=== PATIENT | female | born 1950 | race Caucasian/White ===

== ENCOUNTER 2022-10-09 14:49 | Emergency (ER) | payer MEDICARE ==
[2022-10-09] VITALS (8 sets, daily range): BP systolic 115–146; BP diastolic 50–71
[~2022-10-09] VITALS: Ht 162.6 cm; Wt 90.9 kg
[2022-10-09 15:38] LABS: HEMATOCRIT 32.2 % (37.0-47.0); HEMOGLOBIN 10.2 g/dl (12.0-16.0); IMMATURE GRANULOCYTES 1.7 % (0.0-5.0); MEAN CELL VOLUME 99.1 fL CALC (80.0-100.0); MEAN CORPUSCULAR HGB 31.4 pG CALC (26.0-32.0); MEAN CORPUSCULAR HGB CONC 31.7 g/dL CAL (32.0-36.0); NEUT# 5.51 thou/uL (2.00-7.15); RED BLOOD COUNT 3.25 mill/uL (4.20-5.60); RED CELL DISTRI WIDTH 14.7 % (11.5-15.5)
[2022-10-09 16:17] LABS: ALBUMIN 4.2 g/dL (3.2-5.0); ALKALINE PHOSPHATASE 58 u/l (38-126); ANION GAP 13 (6-22 (CALC)); BILIRUBIN, TOTAL 0.3 mg/dL (0.0-1.4); BUN 19 mg/dL (8-23); BUN/CREATININE RATIO 20 (12-20 (CALC)); CARBON DIOXIDE 28 mmol/l (22-30); CHLORIDE 108 mmol/l (95-108); CREATININE 0.9 mg/dL (0.5-1.0); GFR FOR AFR.AMER. > 60 ML/MIN (>=60 (CALC)); GFR OTHER RACES > 60 ML/MIN (>=60 (CALC)); POTASSIUM 4.1 mmol/l (3.5-5.1); SGOT/AST 33 u/l (9-36); SODIUM 145 mmol/l (137-146); TOTAL PROTEIN 7.1 g/dL (6.3-8.2)
== END 2022-10-09 17:01 | disposition home or self-care (01) ==
LOC: ED 14:49
PROVIDERS: Family Medicine
DX: R06.02 Shortness of breath (principal); G47.33 Obstructive sleep apnea (adult) (pediatric); I10 Essential (primary) hypertension; E66.9 Obesity, unspecified; E03.9 Hypothyroidism, unspecified

== ENCOUNTER 2024-10-01 06:51 | Day surgery (SDC) | payer MEDICARE ==
[~2024-10-01] VITALS: Ht 162.6 cm; Wt 95.3 kg
[~2024-10-01 06:51] MED LIST: D325 MCG PO; LEVOTHYROXIN25 MC1 PO; LOSARTAN POTASS50 MG PO; NORVASC PO; PAROXETINE20 MG PO; PROTONIX40 M2 PO; ROSUVASTATIN CA20 MG PO; TRAZODONE50 MG PO; VENTOLIN HFA108 MCG IN
[2024-10-01] MEDS ORDERED: FAMOTIDINE 10MG/ML 2ML SDV IV ONE (07:03)
[2024-10-01] MEDS ORDERED: LACTATED RINGER'S 1,000 ML IV ONE (07:03)
[2024-10-01] MEDS ORDERED: STERILE WATER FOR IRRIGATION 1,000 ML BTL IR ONE (07:45)
[2024-10-01 08:50] VITALS: BP 150/68
[2024-10-01] MEDS ORDERED: GLYCOPYRROLATE 0.2 MG/ML IV ONE (14:08)
[2024-10-01] MEDS ORDERED: LIDOCAINE HCL 2% 2ML SDV IV ONE (14:08)
[2024-10-01] MEDS ORDERED: PROPOFOL 200 MG/20 ML VIAL IV ONE (14:08)
== END 2024-10-01 09:05 | disposition home or self-care (01) ==
LOC: ORM 06:51
PROVIDERS: ATTEND Surgery
PROC: 0DBN8ZX Excision of Sigmoid Colon, Via Natural or Artificial Opening Endoscopic, Diagnostic (ICD-10-PCS; principal; 2024-10-01)
PROC: 0DB98ZX Excision of Duodenum, Via Natural or Artificial Opening Endoscopic, Diagnostic (ICD-10-PCS; 2024-10-01)
PROC: 0DB68ZX Excision of Stomach, Via Natural or Artificial Opening Endoscopic, Diagnostic (ICD-10-PCS; 2024-10-01)
DX: Z12.11 Encounter for screening for malignant neoplasm of colon (principal); D12.5 Benign neoplasm of sigmoid colon; K57.30 Diverticulosis of large intestine without perforation or abscess without bleeding; K64.8 Other hemorrhoids; K31.89 Other diseases of stomach and duodenum; K31.7 Polyp of stomach and duodenum; K21.9 Gastro-esophageal reflux disease without esophagitis; I10 Essential (primary) hypertension; F41.9 Anxiety disorder, unspecified; F32.A Depression, unspecified; E78.5 Hyperlipidemia, unspecified; Z80.0 Family history of malignant neoplasm of digestive organs